=== PATIENT | female | born 1935 | race Caucasian/White ===

== ENCOUNTER → 2018-09-28 | Outpatient (CLI) | payer MEDICARE, OTHER ==
[2017-09-07 08:39] VITALS: BP 138/60
[~2018-09-28] MED LIST: ACET500T68 PO; ALPR0.5T6 PO; ASPI-482 PO; BUPR150T11 PO; LISI-130 PO; LISI-334 PO; POTA20LI27 PO; PRED-220 PO; SIMV10TA3 PO; SIMV20TA3 PO
--- NOTE | 2018-09-28 10:08 | CARD ---
MR#: [id number] Date of Study: 09/28/2018 Ordering Physician: BRAEDEN RICHARD, Referring Physician: BRAEDEN RICHARD, Tech: Katlyn Rodriguez JOSE APPROVED REPORT EXAM: Two-dimensional and M-mode echocardiogram with Doppler and color Doppler. Other Information Quality : Good INDICATION Tricuspid Regurgitation 2D DIMENSIONS RVDd2.2 (2.9-3.5cm)Left Atrium(2D)2.8 (1.6-4.0cm) IVSd0.8 (0.7-1.1cm)Aortic Root(2D)3.0 (2.0-3.7cm) LVDd3.4 (3.9-5.9cm)LVOT Diameter1.8 (1.8-2.4cm) PWd0.9 (0.7-1.1cm)LVDs2.6 (2.5-4.0cm) FS (%) 30.0 %SV21.5 ml LVEF(%)60.0 (>50%) Aortic Valve AoV Peak Félix.117.9cm/sAoV VTI22.3cm AO Peak GR.5.6mmHgLVOT Peak Félix.112.1cm/s LVOT VTI 22.89cmAO Mean GR.3mmHg CURT (VMAX)2.37ba5RFL (VTI)2.48cm2 Mitral Valve MV E Hyqpzujj72.9cm/sMV DECEL [id number] MV A Omqzktao16.0cm/sMV TDH56yo E/A Ratio1.6MVA (PHT)3.81cm2 TDI E/Lateral E'18.9E/Medial E'15.6 Tricuspid Valve TR P. Vehnnplq843ui/sRAP ILHLUHLZ1pvIj TR Peak Gr.93mqHhDYMD18zwKc Pulmonary Vein S1 Ulgunjxl12.2cm/sD2 Zhaifmnc78.0cm/s LEFT VENTRICLE The left ventricle is normal size. There is normal left ventricular wall thickness. The left ventricu lar systolic function is normal. The Ejection Fraction is 60-65%. There is normal LV segmental wall m otion. RIGHT VENTRICLE The right ventricle is normal size. The right ventricular systolic function is normal. ATRIA The left atrium size is normal. The right atrium size is normal. The interatrial septum is intact wit h no evidence for an atrial septal defect or patent foramen ovale as noted on 2-D or Doppler imaging. AORTIC VALVE The aortic valve is calcified but opens well. Doppler and Color Flow revealed mild aortic regurgitati on. There is no significant aortic valvular stenosis. MITRAL VALVE The mitral valve is calcified but opens well. There is no evidence of mitral valve prolapse. There is no mitral valve stenosis. Doppler and Color-flow revealed mild mitral regurgitation. TRICUSPID VALVE The tricuspid valve is normal in structure and function. Doppler and Color Flow revealed mild to mode rate tricuspid regurgitation. There is mild pulmonary hypertension. The PA pressure was estimated at 31 mmHg. There is no tricuspid valve stenosis. PULMONIC VALVE The pulmonary valve is normal in structure and function. Doppler and Color Flow revealed trace to mil d pulmonic valvular regurgitation. There is no pulmonic valvular stenosis. GREAT VESSELS The aortic root is normal in size. The ascending aorta is normal in size. The IVC is normal in size a nd collapses >50% with inspiration. PERICARDIAL EFFUSION There is no evidence of significant pericardial effusion. Critical Notification Critical Value: No <Conclusion> The left ventricular systolic function is normal. The Ejection Fraction is 60-65%. There is normal LV segmental wall motion. Mild aortic regurgitation. Mild mitral regurgitation. Mild to moderate tricuspid regurgitation. The PA pressure was estimated at 31 mmHg. There is no evidence of significant pericardial effusion. Signed by : Xiang Armenta, Electronically Approved : 09/28/2018 10:08:03
== END | disposition home or self-care (01) ==
LOC: ECHO 09:00
PROVIDERS: ATTEND Internal Medicine Cardiovascular Disease
DX: I08.8 Other rheumatic multiple valve diseases (principal); I27.20 Pulmonary hypertension, unspecified
CPT/HCPCS: 93306

== ENCOUNTER → 2019-07-10 | Outpatient (CLI) | payer MEDICARE, OTHER ==
[2017-09-07 08:39] VITALS: BP 138/60
[~2019-07-10] MED LIST changes: +POTA20LI2 PO; -POTA20LI27 PO; +SIMV10TA15 PO; -SIMV10TA3 PO; +SIMV20TA18 PO; -SIMV20TA3 PO
--- NOTE | 2019-07-10 15:09 | KCIC ---
CERVICAL SPINE WO CONTRAST History: Cervical spine osteoarthritis. Neck pain. Stiffness. Pain into shoulders. Technique: Multiplanar, multi sequential noncontrast MR imaging was performed of the cervical spine. Comparison: None Findings: Grade 1 anterolisthesis C3 on C4 and C4 on C5. Mild retrolisthesis C6 on C7. Minimal grade 1 anterolisthesis C7 on T1. Multilevel degenerative endplate changes most prominent with remodeling of C6 inferior endplate. No acute fracture. No pathologic signal abnormality within the cervical spinal cord. C2-C3: Small posterior disc bulge. No canal or neuroforaminal narrowing. C3-C4: Anterolisthesis. Disc uncovering. Disc bulge. Mild canal narrowing. Mild cord flattening. Uncovertebral and facet arthropathy. Moderate to severe left and mild right neuroforaminal narrowing. C4-C5: Anterolisthesis. Disc uncovering. No canal narrowing. Mild cord flattening. Uncovertebral and facet hypertrophy. Mild left neuroforaminal narrowing. No right neuroforaminal narrowing. C5-C6: Posterior disc osteophyte complex. No canal narrowing. Mild cord flattening. No neuroforaminal narrowing. Mild facet arthropathy. C6-C7: Posterior disc osteophyte complex. Posterior disc osteophyte complex. No canal narrowing. Minimal cord flattening. Uncovertebral and facet arthropathy. Moderate right and mild left neuroforaminal narrowing. C7-T1: Slight anterolisthesis. No canal narrowing. Moderate left and mild right facet arthropathy. Mild left neuroforaminal narrowing. No right neuroforaminal narrowing. Impression: 1. Moderate multilevel cervical spondylosis with multilevel listhesis. 2. Mild canal narrowing C3-C4. 3. Multilevel neural foraminal narrowing most prominent left C3-C4 and right C6-C7. Electronically signed by: Alfonso Damon DO (07/10/2019 3:07 PM) [id number]
== END | disposition home or self-care (01) ==
LOC: KCIC MRI 10:16
PROVIDERS: ATTEND Family Medicine
DX: M47.892 Other spondylosis, cervical region (principal); M50.21 Other cervical disc displacement, high cervical region; M43.13 Spondylolisthesis, cervicothoracic region; M48.03 Spinal stenosis, cervicothoracic region; M25.78 Osteophyte, vertebrae; M12.88 Other specific arthropathies, not elsewhere classified, other specified site
CPT/HCPCS: 72141

== ENCOUNTER → 2019-11-05 | Outpatient (CLI) | payer MEDICARE, OTHER ==
[2017-09-07 08:39] VITALS: BP 138/60
[~2019-11-05] MED LIST changes: +IOHEXOL 180 MG/ML 10 ML VIAL. ONE; +methylPREDNISolone ACETATE 40 MG/ML VIAL. ONE; +methylPREDNISolone ACETATE 80 MG/ML VIAL. ONE
--- NOTE | 2019-11-05 14:09 | PAIN ---
DATE OF SERVICE: 11/05/2019 INITIAL CONSULTATION FOR PAIN CLINIC CHIEF COMPLAINT: Neck pain. HISTORY OF PRESENT ILLNESS: This is an 84-year-old female who presents with history of pain in the neck, upper neck, mid back and lower neck for about 6 months or so, not a result of any specific injury or action that she is aware of, but came on gradually with time, is now worse with holding her head up straight, rotating the head to a moderate extent, but more just in the back of the neck itself, sometimes into the upper medial shoulders, but mostly in the back of the neck, but not radiating up into the head, not coming around to the front, just goes side to side in the neck itself and it just aches. The patient reports it is becoming more constant with worse at night, awakens her from sleep occasionally, but not every night, does not affect her bowel or bladder control or ability to walk, but when she is up and around, she notices the pain more than when she is sitting or resting with her head against the back of a chair or sofa where it can support. The patient has not had any formal physical therapies or other treatments at this time. No chiropractic manipulations. She is not taking any specific medications for it. She has taken some Advil and Tylenol in the past, but did not seem to decrease the pain significantly. The patient rates her disability from 0-10, 10 being the worst, is a 4 with recreational activities, social activity and occupational activities, 2 with self-care, 0 with sexual activity and 2 with life support activities. The patient did have an MRI of the cervical spine dated 07/10/2019 showing moderate multilevel cervical spondylosis with multiple listhesis, mild canal narrowing at C3-C4, multilevel neural foraminal narrowing, most prominent at C3-C4, in the right at C6-C7. PAST MEDICAL HISTORY: Significant for Graves' disease and arthritis. Otherwise, the patient has been fairly healthy. PAST SURGICAL HISTORY: Only surgeries, cataract extractions and 3 previous pregnancies. CURRENT MEDICATIONS: Include lisinopril, alprazolam, daily baby aspirin, bupropion, simvastatin, potassium, Tylenol. ALLERGIES: The patient has no known drug allergies. FAMILY HISTORY: Significant for diabetes. SOCIAL HISTORY: The patient does not drink alcohol, does not smoke, does not use any illegal, illicit or recreational drugs. She is and lives locally with her son. REVIEW OF SYSTEMS: The patient's review of systems is positive for those items mentioned in history of present illness. All systems reviewed and otherwise negative. It is complete, full and well documented on the patient's chart. PHYSICAL EXAMINATION: VITAL SIGNS: The patient's blood pressure is 139/83, pulse 73, respirations 18, temperature is 98.9 degrees Fahrenheit, height is 5 feet 1 inch, weight is 75 pounds. GENERAL: The patient is awake, alert, oriented, appropriate, very pleasant demeanor. HEENT: Shows normocephalic, atraumatic. Extraocular movements are intact and symmetrical. Oral cavity: Mucous membranes moist and pink. Dentition is intact. NECK: Shows anterior throat supple without palpable lymphadenopathy noted. Swallow reflex symmetrical. CHEST: Shows normal on inspection. Breath sounds are clear. No rales, rhonchi or wheezes auscultated. HEART: Shows S1, S2 clear. No murmurs auscultated. ABDOMEN: Soft, nontender, nondistended. No palpable organomegaly is noted. No rebound or guarding demonstrated. BACK: Shows spine grossly in the midline. Slight exaggeration of the cervical lordotic flattening. Mild increase in thoracic kyphosis. Cervical paraspinous muscle shows symmetrical on inspection, with palpation shows some moderate tenderness diffusely throughout the upper, middle and lower distribution of the cervical paraspinous musculature, but without trigger points, without atrophy, hypertrophy, without asymmetry, no tenderness over the spinous processes. The patient shows good rotation and motion of cervical spine, both laterally greater than 45 closer to 90 degrees, right and left lateral without significant increase in pain, also full extension and full forward flexion chin to chest without increase in pain with any of these maneuvers. EXTREMITIES: The patient's upper extremities show deep tendon reflexes at 2+ in the biceps and triceps tendons. Motor exam is strong with medical biller/coder strength rated approximately 5 on a scale of 5 and equal bilaterally. Peripheral pulses are 2+ radial. No peripheral edema is noted. Upper extremities are warm and dry to touch, equal in color and appearance. Shoulder shrug is strong and intact without loss of strength on resistance, without increase in pain with resistance. SKIN: Shows warm and dry, good turgor. No edema. No sores, rashes or bruising throughout. IMPRESSION: 1. This is an 84-year-old female with approximately a 6-month history of pain in upper to mid neck without specific radiation in the upper extremities or into the head in the occipital region with cervicalgia. 2. MRI scan of cervical spine as noted. 3. History of arthritis. PLAN: Options were discussed with the patient including conservative medical managements, physical therapies and interventional techniques. She would like to pursue interventional techniques as she is weary about physical therapies and chiropractic treatments. She would like to try this today. We discussed a cervical epidural steroid injection using description as well as anatomical models to describe the procedure. Risks were then discussed including, but not limited to bleeding, infection, possibility of epidural hematoma, subsequent neurological compromise, dural puncture, headaches, spinal cord and/or nerve damage, side effects of steroid medication and poor results regarding pain control. The patient understands and wished to proceed. The patient will return to clinic in approximately 2 weeks for followup. She was counseled on return appointment, activity level and side effects to be aware of. DIAGNOSES: Cervicalgia with cervical spondylosis and cervical degenerative disk disease. PROCEDURE: Cervical epidural steroid injection, translaminar approach at C5-C6 level using C-arm fluoroscopic guidance under sterile prep and drape using local anesthetic. MEDICATION INJECTED: A total of 120 mg Depo-Medrol plus 5 mL of preservative-free normal saline and 2 mL of contrast. CONDITION AT DISCHARGE: Stable. The patient tolerated procedure well, had no complications. RUPAL BANKS MD DR: RADHA/divina JOB#: [id number] / [id number] JONH Bowers MD
== END ==
LOC: PNCL 10:33
PROVIDERS: ATTEND Anesthesiology
DX: M47.812 Spondylosis without myelopathy or radiculopathy, cervical region (principal); M50.322 Other cervical disc degeneration at C5-C6 level
CPT/HCPCS: 62321; J1030; J1040; Q9965; 62323

== ENCOUNTER → 2019-11-19 | Outpatient (CLI) | payer MEDICARE, OTHER ==
[2017-09-07 08:39] VITALS: BP 138/60
--- NOTE | 2019-11-19 12:52 | PAIN ---
DATE OF SERVICE: 11/19/2019 PROGRESS NOTE FOR PAIN CLINIC DIAGNOSIS: Cervicalgia with cervical spondylosis and cervical degenerative disk disease. HISTORY OF PRESENT ILLNESS: The patient an 84-year-old female who returns for followup status post cervical epidural steroid injection x 1. The patient reports near 100% improvement for the first week after the injection with no headache whatsoever, neck is doing much better, increased activity with greater ease and comfort, walking, doing household activities, sleeping better. The patient reports over the past week has begun to return in the base of the neck and in the base of the occipital region to some extent into the shoulder. The patient reports it is aching now, but tolerable about a 50% improvement overall. The patient reports no new motor or sensory deficits, no new bowel or bladder incontinence or other complaints. The patient reports worst on a 5, least at 4, and average is 5 on to the 5 on a scale of 10 today. The patient reports it is aching and dull base of the neck and shoulders as well as the back of the head and it was much worse last night when trying to sleep, but it is better this morning. The patient reports no new motor or sensory deficits, no new bowel or bladder incontinence or other complaints. PHYSICAL EXAMINATION: VITAL SIGNS: The patient's blood pressure 136/56, pulse 62, respirations 16, temperature is 95.7 degrees Fahrenheit, height is 5 feet 2 inches and weight is 75 pounds. GENERAL: The patient is awake, alert, oriented, appropriate, very pleasant demeanor. HEENT: Head shows normocephalic, atraumatic. Extraocular movements are intact and symmetrical. Oral cavity: Mucous membranes moist and pink. Dentition is intact. NECK: Shows anterior throat supple without palpable lymphadenopathy noted. Swallow reflex symmetrical. CHEST: Shows normal on inspection. Breath sounds are clear bilaterally. No rales, rhonchi or wheezes auscultated. HEART: Shows S1, S2 clear. No murmurs auscultated. ABDOMEN: Soft, nontender, nondistended. No palpable organomegaly is noted. No rebound or guarding demonstrated. BACK: Shows spine grossly in the midline. Cervical paraspinous muscle shows symmetrical on inspection with normal cervical lordotic curvature with palpation shows some moderate tenderness diffusely throughout the upper, middle and lower distribution of paraspinous muscles bilaterally. Peripheral pulses are 2+ in the radial distribution. No peripheral edema is noted. Deep tendon reflexes are 2+ biceps, triceps tendons. Motor exam is strong with director of recruitment strength rated at 5/5 and equal bilaterally. Shoulder shrug is strong and intact without loss of resistance, but with some minor pain, pain in the base of the neck and shoulders bilaterally. PLAN: Options were discussed with the patient. The patient's old chart was reviewed as her current medication regimen updated. Current review of systems updated today as well. We will proceed with a second today cervical epidural steroid injection with fluoroscopic guidance. Risks were again discussed including, but not limited to bleeding, infection, possibility of epidural hematoma, subsequent neurological compromise, dural puncture, headaches, spinal cord and/or nerve damage, side effects of steroid medication and poor results regarding pain control. The patient understands and wished to proceed. The patient will return to clinic in approximately 2 weeks for followup. She was counseled on return appointment, activity level and side effects to be aware of. DIAGNOSES: Cervical spondylosis and cervical degenerative disk disease with cervicalgia. PROCEDURE: Cervical epidural steroid injection, translaminar approach C6-C7 level using C-arm fluoroscopic guidance under sterile prep and drape using local anesthetic. MEDICATION INJECTED: A total of 120 mg Depo-Medrol plus 5 mL of preservative-free normal saline and 2 mL of contrast. CONDITION AT DISCHARGE: Stable. The patient tolerated procedure well, had no complications. RUPAL BANKS MD DR: RADHA/divina JOB#: [id number] / [id number]
== END ==
LOC: PNCL 10:32
PROVIDERS: ATTEND Anesthesiology
DX: M47.812 Spondylosis without myelopathy or radiculopathy, cervical region (principal)
CPT/HCPCS: 62321; J1030; J1040; Q9965

== ENCOUNTER → 2019-12-10 | Outpatient (CLI) | payer MEDICARE, OTHER ==
[2017-09-07 08:39] VITALS: BP 138/60
--- NOTE | 2019-12-10 11:45 | PAIN ---
DATE OF SERVICE: 12/10/2019 PROGRESS NOTE FOR PAIN CLINIC DIAGNOSES: 1. Cervicalgia. 2. Cervical spondylosis. 3. Cervical degenerative disk disease. HISTORY OF PRESENT ILLNESS: The patient is an 84-year-old female who returns for followup status post cervical epidural steroid injections x 2, most recently on 11/19/2019. The patient reports she did very well with pain reduced about 60% overall. The patient reports still some pain in the base of the neck and shoulders, but mainly just causing some light headaches in the morning, which dissipates by about mid morning. The patient reports otherwise doing fairly well. Again, pain radiating to bilateral shoulders and upper extremities, right essentially equal to the left at this time. The patient reports some tenderness in the right occipital region and aching as well. The patient reports her pain is an 8 on a scale of 10 at its average, 8 at its worst and a 4 at its least and is a 4 today. The patient reports it is aching and dull without any new deficits. The patient has been using her upper extremities with greater ease and comfort, better strength. The patient reports no new motor or sensory deficits, no new incontinence or other complaints. PHYSICAL EXAMINATION: VITAL SIGNS: The patient's blood pressure is 131/77, pulse 77, respirations 18, temperature 98.2 degrees Fahrenheit, height is 5 feet 2 inches, weight is 73 pounds. GENERAL: The patient is awake, alert, oriented, appropriate, very pleasant demeanor. HEENT: Shows normocephalic, atraumatic. Extraocular movements are intact and symmetrical. Oral cavity: Mucous membranes moist and pink. Dentition is intact. NECK: Shows anterior throat supple without palpable lymphadenopathy noted. Swallow reflex symmetrical. CHEST: Shows normal on inspection. Breath sounds are clear bilaterally. No rales, rhonchi or wheezes auscultated. HEART: Shows S1, S2 clear. No murmurs auscultated. ABDOMEN: Soft, nontender, nondistended. BACK: Shows spine grossly in the midline. Some slight flattening of cervical lordotic curvature, with slight increase in thoracic kyphosis. Cervical paraspinous muscle shows symmetrical on inspection, on palpation shows some very mild tenderness diffusely in the inferior aspect of the cervical paraspinous muscles, slightly worse on the right than the left, but without asymmetry, no trigger points or radiation demonstrated. The patient shows good rotational motion of cervical spine, both laterally as well as extension and flexion without significant difficulty. EXTREMITIES: Upper extremities show deep tendon reflexes 2+ in the biceps, triceps tendons. Motor exam is strong with carpet or rug layer helper strength rated at 5/5 as is bicep and tricep flexion bilaterally. Peripheral pulses are 2+ radial. No peripheral edema is noted. Options were discussed with the patient. The patient's old chart was reviewed as her current medication regimen updated. Current review of systems updated today as well. We will proceed with a third in the series of cervical epidural steroid injection today with fluoroscopic guidance. Risks were again discussed including, but not limited to bleeding, infection, possibility of epidural hematoma, subsequent neurological compromise, dural puncture, headaches, spinal cord and/or nerve damage, side effects of steroid medication and poor results regarding pain control. The patient understands and wished to proceed. The patient will return to the clinic in approximately 2 weeks for followup. She was counseled as to return appointment, activity level and side effects to be aware of. DIAGNOSES: Cervical degenerative disk disease, cervical spondylosis, cervicalgia. PROCEDURE: Cervical epidural steroid injection, translaminar approach C6-C7 level using C-arm fluoroscopic guidance under sterile prep and drape using local anesthetic. MEDICATION INJECTED: A total of 120 mg Depo-Medrol plus 5 mL of preservative-free normal saline and 2 mL of contrast. CONDITION AT DISCHARGE: Stable. The patient tolerated the procedure well, had no complications. RUPAL BANKS MD DR: RADHA/divina JOB#: [id number] / [id number]
== END ==
LOC: PNCL 10:46
PROVIDERS: ATTEND Anesthesiology
DX: M47.812 Spondylosis without myelopathy or radiculopathy, cervical region (principal); M50.323 Other cervical disc degeneration at C6-C7 level
CPT/HCPCS: 62321; J1030; J1040; Q9965

== ENCOUNTER → 2020-01-15 | Outpatient (CLI) | payer MEDICARE, OTHER ==
[2017-09-07 08:39] VITALS: BP 138/60
[~2020-01-15] MED LIST changes: -IOHEXOL 180 MG/ML 10 ML VIAL. ONE; -methylPREDNISolone ACETATE 40 MG/ML VIAL. ONE; -methylPREDNISolone ACETATE 80 MG/ML VIAL. ONE
--- NOTE | 2020-01-15 16:44 | RAD ---
Sacrum and coccyx 3 views INDICATION: Pain fell the pop while walking. History of fracture COMPARISON: None available FINDINGS: 3 views sacrum and coccyx show generalized osteopenia and advanced degenerative changes in the lower lumbar spine. No acute fracture or aggressive appearing osseous lesions are identified. Moderate stool throughout the rectal vault and colon partly obscure evaluation of the coccyx on the AP view. IMPRESSION: Osteopenia and degenerative changes. No acute fracture or traumatic malalignment. Electronically signed by: Mac Chun MD (01/15/2020 4:41 PM) [id number]
== END | disposition home or self-care (01) ==
LOC: RAD 11:56
PROVIDERS: ATTEND Family Medicine
DX: M85.88 Other specified disorders of bone density and structure, other site (principal); M53.3 Sacrococcygeal disorders, not elsewhere classified
CPT/HCPCS: 72220

== ENCOUNTER → 2021-10-20 | Outpatient (CLI) | payer MEDICARE, OTHER ==
[2017-09-07 08:39] VITALS: BP 138/60
[~2021-10-20] MED LIST changes: +BARIUM SULFATE 340 GM SUSPENSION. PO ONE; +BARIUM SULFATE 60% 355 ML SUSP PO ONE; +BARIUM SULFATE 700 MG TABLET PO ONE; -LISI-334 PO; +LISI20TA18 PO; +SIMETHICONE/SOD BICARB/CITRIC ACID PACKET. PO ONE
--- NOTE | 2021-10-20 11:30 | RAD ---
DG BARIUM SWALLOW Reason for study: Dysphagia. Comparison studies: None. Technique: Esophagram was performed utilizing double contrast upright examination and single contrast prone examination. Fluoroscopic Time: 1.5 minutes Number of Fluoroscopic Images: 116 Findings: No esophageal mucosal abnormalities. Decreased esophageal motility with poor peristaltic propulsion o f the contrast bolus and persistence of contrast at the cervicothoracic junction. No esophageal diver ticulum or hiatal hernia. Fundus of the stomach is unremarkable. No esophageal reflux despite provocative maneuvers. A barium tablet was delayed in passage at the region of the aortic arch and later at the gastroesopha geal junction. There is height loss and wedging at the mid to lower thoracic spine approximately level of T8. IMPRESSION: 1. Moderate esophageal dysmotility. 2. Height loss and wedging of the mid to lower thoracic vertebral body, approximately T7 or T8 consis tent with compression fracture. Electronically signed by: Vladislav Crockett MD (10/20/2021 11:28 AM) [id number]
== END ==
LOC: RAD 09:17
PROVIDERS: ATTEND Physician Assistant
DX: K22.89 Other specified disease of esophagus (principal); R13.10 Dysphagia, unspecified
CPT/HCPCS: 74220